=== PATIENT | female | born 1965 | race Caucasian/White ===

== ENCOUNTER 2018-05-22 10:40 | Emergency (ER) | payer OTHER ==
[~2018-05-22] VITALS: Ht 157.5 cm; Wt 68.0 kg
[~2018-05-22 10:40] MED LIST: ATIVAN0.5 MG; DURICEF500 MG PO; SYNTHROID75 MCG
[2018-05-22] MEDS ORDERED: METFORMIN HCL500 MG PO (10:51)
[2018-05-22] MEDS ORDERED: SYNTHROID300 MCG (10:51)
[2018-05-22] MEDS ORDERED: LIPITOR20 MG (10:52)
[2018-05-22] MEDS ORDERED: RESTORIL7.5 MG (10:52)
== END 2018-05-22 15:34 | disposition home or self-care (01) ==
LOC: ER 10:40
DX: S93.492A Sprain of other ligament of left ankle, initial encounter (principal); X50.0XXA Overexertion from strenuous movement or load, initial encounter; Y93.89 Activity, other specified; Y92.89 Other specified places as the place of occurrence of the external cause; Y99.8 Other external cause status

== ENCOUNTER 2021-10-07 10:19 | Day surgery (SDC) | payer OTHER ==
[~2021-10-07 10:19] MED LIST changes: +LIPITOR20 MG; +METFORMIN HCL500 MG PO; +RESTORIL7.5 MG; +SYNTHROID300 MCG
== END 2021-10-07 15:42 | disposition home or self-care (01) ==
LOC: AMB-ENDOS 10:19
PROVIDERS: ATTEND Colon & Rectal Surgery
DX: K63.5 Polyp of colon (principal); I10 Essential (primary) hypertension; Z20.822 Contact with and (suspected) exposure to COVID-19